=== PATIENT | male | born 2000 | race Caucasian/White ===

== ENCOUNTER 2025-01-10 18:17 | Emergency (ER) | payer MEDICAID ==
[~2025-01-10] VITALS: Ht 177.8 cm; Wt 81.8 kg
[2025-01-10 18:21] VITALS: TEMP 97.9
[2025-01-10] MEDS ORDERED: ACET-3385 PO (19:52)
[2025-01-10] MEDS: IBUPROFEN 600 MG TABLET PO ONE (20:15)
[2025-01-10] MEDS: ACETAMINOPHEN 500 MG TABLET PO ONE (20:15)
[2025-01-10 20:55] VITALS: BP 114/83; PULSE 98; RESP 18; O2SAT 97
== END 2025-01-10 21:09 | disposition home or self-care (01) ==
LOC: EMS 18:19
DX: S62.91XA Unspecified fracture of right hand, initial encounter for closed fracture (principal); Z88.0 Allergy status to penicillin; W10.9XXA Fall (on) (from) unspecified stairs and steps, initial encounter; Y93.89 Activity, other specified; Y92.89 Other specified places as the place of occurrence of the external cause; Y99.8 Other external cause status
CPT/HCPCS: 99284; 73110-TC; 73130-TC; Z7502; Z7610